=== PATIENT | female | born 1950 | race Caucasian/White ===

== ENCOUNTER 2022-10-19 07:51 | Outpatient (CLI) | payer MEDICARE, BC, SELFPAY ==
--- NOTE | 2022-10-19 08:15 | MR_ITS ---
[address] [address] Phone:?[phone] Fax:?[phone] Referring Physician Information: Juan M Sidhu M.D. [id number] [facility] [address] Phone:?[phone] Fax:?[phone] Patient:Scott Conner D.O.B:?1950 Sex:?Female Phone:?[phone] [facility] MRN:?[id number] Exam Date:?10/19/2022 EXAM: MRI of the LEFT SHOULDER, without contrast CLINICAL HISTORY: Left shoulder pain. Unspecified rotator cuff tear. Suspect rotator cuff tear. COMPARISONS: Plain radiographs 10/09/2022. TECHNICAL: MRI sequences of the left shoulder: Axials: PD, T2 Coronals: PD, STIR, T2 Sagittals: PD, T2 SEDATION: None CONTRAST: None FINDINGS: Bones: No fracture or suspicious bone marrow signal abnormality. Coracoacromial arch: Acromion: No os acromiale. Type I-II acromion. Acromiohumeral space: The bony distance is unremarkable. Coracohumeral space: The bony distance is unremarkable. Acromioclavicular joint: Mild degenerative changes. Irregularity of the distal clavicular subchondral bone plate and mild to moderate distal clavicular bone marrow edema. There is also edema-like signal within the adjacent portion of the acromion. Coracoclavicular ligament: The coracoclavicular ligament is intact. Rotator cuff muscles/tendons: Supraspinatus and infraspinatus: Mild to moderate tendinopathy. No muscular atrophy. Infraspinatus: Mild tendinopathy. Teres minor: The teres minor tendon and muscle are intact. Subscapularis: 5 x 5 mm concealed slitlike tear within the superior portion of the subscapularis tendon insertion best seen on axial series 3.1 image 16 and series 3.2 image 46 although it must be noted that evaluation is compromised by substantial patient motion artifact. No muscular atrophy. Labrum and glenohumeral joint: The labrum is not well evaluated because of nonarthrogram technique and substantial motion artifact. Small glenohumeral joint effusion. The cartilage is not well evaluated because of substantial motion artifact and nonarthrogram technique. No convincing evidence of capsular edema or thickening although evaluation is suboptimal because of lack of joint distention. Proximal biceps tendon, long head and short heads: The long and short heads of the proximal biceps tendon are intact although evaluation is compromised by substantial motion artifact. Bursae: Subacromial/subdeltoid: Mild to moderate bursitis. Subcoracoid: No convincing subcoracoid bursal thickening/bursitis. IMPRESSION: 1. Mild to moderate supraspinatus tendinopathy and mild infraspinatus tendinopathy. 2. 5 x 5 mm concealed slitlike tear within the superior portion of the subscapularis tendon insertion although it must be noted that evaluation is compromised by substantial patient motion artifact. 3. No articular or bursal surfacing rotator cuff tendon tear or rotator cuff muscular atrophy although it must be noted that evaluation is compromised by substantial motion artifact. 4. Mild to moderate subacromial/subdeltoid bursitis. 5. Irregularity of the distal clavicular subchondral bone plate and mild to moderate distal clavicular bone marrow edema, edema-like signal within the adjacent portion of the acromion, and mild underlying acromioclavicular joint osteoarthritic changes. Correlate with any point tenderness and clinical signs and symptoms. 6. Small glenohumeral joint effusion. 7. The labrum and cartilage are not well evaluated because of substantial motion artifact and nonarthrogram technique. RCB Electronically signed on 10/23/2022 7:15:00 AM by Crut George M.D.
--- NOTE | 2022-10-19 08:15 | MR_ITS ---
[address] [address] Phone:?[phone] Fax:?[phone] Referring Physician Information: Juan M Sidhu M.D. [address] [facility] [address] Phone:?[phone] Fax:?[phone] Patient:Scott Conner D.O.B:?1950 Sex:?Female Phone:?[phone] [facility] MRN:?[id number] Exam Date:?10/19/2022 EXAM: MRI of the RIGHT SHOULDER, without contrast CLINICAL HISTORY: Right shoulder pain. Unspecified rotator cuff tear. Suspect rotator cuff tear. COMPARISONS: Plain radiographs 10/09/2022. TECHNICAL: MRI sequences of the right shoulder: Axials: PD, T2 Coronals: PD, STIR, T2 Sagittals: PD, T2 SEDATION: None CONTRAST: None FINDINGS: Bones: No fracture or suspicious bone marrow signal abnormality. Coracoacromial arch: Acromion: No os acromiale. Type I-II acromion. Acromiohumeral space: The bony distance is unremarkable. Coracohumeral space: The bony distance is unremarkable. Acromioclavicular joint: Mild degenerative changes. Coracoclavicular ligament: The coracoclavicular ligament is intact. Rotator cuff muscles/tendons: Supraspinatus: 3 x 3 mm slitlike low-grade partial-thickness tear within the anterior portion of the supraspinatus tendon insertional footprint at its interdigitation with subscapular tendon fibers contacts the cortical insertional surface, closely approximates and may reach the bursal surface, and is superimposed upon mild supraspinatus tendinopathy. No muscular atrophy. Infraspinatus: The infraspinatus tendon and muscle are intact. Teres minor: The teres minor tendon and muscle are intact. Subscapularis: 3 x 3 mm slitlike low-grade partial-thickness tear within the anterior portion of the supraspinatus tendon insertional footprint at its interdigitation with subscapular tendon fibers contacts the cortical insertional surface, closely approximates and may reach the bursal surface, and is superimposed upon mild supraspinatus tendinopathy. No muscular atrophy. Labrum and glenohumeral joint: Fraying of much of the labrum is suspected although it must be noted that the labrum is not well evaluated because of substantial motion artifact and nonarthrogram technique. Physiologic amount of joint fluid. The cartilage is not well evaluated because of substantial motion artifact and nonarthrogram technique. No convincing evidence of capsular edema or thickening although evaluation is suboptimal because of lack of joint distention. Proximal biceps tendon, long head and short heads: The long and short heads of the proximal biceps tendon are intact. Bursae: Subacromial/subdeltoid: Moderate bursitis. Subcoracoid: No convincing subcoracoid bursal thickening/bursitis. IMPRESSION: 1. Tiny 3 x 3 mm slitlike low-grade partial-thickness tear within the anterior portion of the supraspinatus tendon insertional footprint at its interdigitation with subscapularis tendon fibers contacts the cortical insertional surface, closely approximates and may reach the bursal surface, and is superimposed upon mild supraspinatus tendinopathy. 2. No atrophy of the rotator cuff musculature. 3. Moderate subacromial/subdeltoid bursitis. 4. Fraying of much of the of the labrum is suspected although it must be noted that the labrum and cartilage are not well evaluated because of substantial motion artifact and nonarthrogram technique. RCB Electronically signed on 10/23/2022 6:57:00 AM by Curt George M.D.
== END 2022-10-19 07:52 | disposition home or self-care (01) ==
LOC: MRI 07:53
PROVIDERS: PCP Family Medicine; Visit Provider Orthopaedic Surgery Sports Medicine
DX: M75.102 Unspecified rotator cuff tear or rupture of left shoulder, not specified as traumatic (principal); M75.101 Unspecified rotator cuff tear or rupture of right shoulder, not specified as traumatic; M75.51 Bursitis of right shoulder; M75.52 Bursitis of left shoulder; M25.412 Effusion, left shoulder
CPT/HCPCS: 73221